=== PATIENT | female | born 1955 ===

== ENCOUNTER → 2021-05-25 | Outpatient (CLI) | payer OTHER, BC ==
[~2021-05-25] VITALS: Ht 162.6 cm; Wt 50.9 kg
[2021-05-25] VITALS (10 sets, daily range): BP systolic 103–133; BP diastolic 52–69; PULSE 69–84; TEMP 97.9
[~2021-05-25] MED LIST: FENT 5ML50 MCG/ML IV; KETOROLAC IV; KLONOPIN WAFE0.25 MG PO; ZOSYN 4 GM-0.51 PD1 IV
--- NOTE | 2021-05-25 14:10 | NUR ---
Pt to ct per wheelchair. Pt positioned on CT table in supine position. Monitors applied.
--- NOTE | 2021-05-25 14:20 | NUR ---
Dr Paz into room and talks with pt.
--- NOTE | 2021-05-25 14:38 | NUR ---
Drain tube in place in right lower pelvis, draining purulent drainage.
--- NOTE | 2021-05-25 14:40 | NUR ---
Total of 70 ml manually removed from abscess site by Dr Paz.
== END ==
LOC: COL.RAD 12:05
DX: L02.211 Cutaneous abscess of abdominal wall (principal)
CPT/HCPCS: C1769; J2250; J3010